=== PATIENT | male | born 1990 ===

== ENCOUNTER → 2020-01-02 | Outpatient (CLI) | payer BC | LOC: HYPER 08:34 | PROVIDERS: ATTEND Emergency Medicine | DX: T81.31XA Disruption of external operation (surgical) wound, not elsewhere classified, initial encounter (principal); L05.01 Pilonidal cyst with abscess; Y92.238 Other place in hospital as the place of occurrence of the external cause; Y83.8 Other surgical procedures as the cause of abnormal reaction of the patient, or of later complication, without mention of misadventure at the time of the procedure ==

== ENCOUNTER → 2020-01-10 | Outpatient (CLI) | payer BC | LOC: HYPER 09:57 | PROVIDERS: ATTEND Emergency Medicine | DX: T81.31XD Disruption of external operation (surgical) wound, not elsewhere classified, subsequent encounter (principal); L05.01 Pilonidal cyst with abscess; Y83.8 Other surgical procedures as the cause of abnormal reaction of the patient, or of later complication, without mention of misadventure at the time of the procedure ==

== ENCOUNTER → 2020-01-17 | Outpatient (CLI) | payer BC | LOC: HYPER 10:39 | PROVIDERS: ATTEND Emergency Medicine Emergency Medical Services | DX: T81.31XD Disruption of external operation (surgical) wound, not elsewhere classified, subsequent encounter (principal); L05.01 Pilonidal cyst with abscess; Y83.8 Other surgical procedures as the cause of abnormal reaction of the patient, or of later complication, without mention of misadventure at the time of the procedure ==

== ENCOUNTER → 2020-01-31 | Outpatient (CLI) | payer BC | LOC: HYPER 10:38 | PROVIDERS: ATTEND Emergency Medicine | DX: T81.31XD Disruption of external operation (surgical) wound, not elsewhere classified, subsequent encounter (principal); L05.01 Pilonidal cyst with abscess; Y83.8 Other surgical procedures as the cause of abnormal reaction of the patient, or of later complication, without mention of misadventure at the time of the procedure ==

== ENCOUNTER → 2020-02-14 | Outpatient (CLI) | payer BC | LOC: HYPER 09:52 | PROVIDERS: ATTEND Emergency Medicine | DX: T81.31XD Disruption of external operation (surgical) wound, not elsewhere classified, subsequent encounter (principal); L05.01 Pilonidal cyst with abscess; K08.409 Partial loss of teeth, unspecified cause, unspecified class; Y83.8 Other surgical procedures as the cause of abnormal reaction of the patient, or of later complication, without mention of misadventure at the time of the procedure ==

== ENCOUNTER → 2020-02-28 | Outpatient (CLI) | payer BC | LOC: HYPER 10:14 | PROVIDERS: ATTEND Emergency Medicine | DX: T81.31XD Disruption of external operation (surgical) wound, not elsewhere classified, subsequent encounter (principal); L05.01 Pilonidal cyst with abscess; Y83.8 Other surgical procedures as the cause of abnormal reaction of the patient, or of later complication, without mention of misadventure at the time of the procedure ==

== ENCOUNTER → 2020-03-13 | Outpatient (CLI) | payer BC | LOC: HYPER 09:42 | PROVIDERS: ATTEND Emergency Medicine | DX: T81.31XD Disruption of external operation (surgical) wound, not elsewhere classified, subsequent encounter (principal); L05.01 Pilonidal cyst with abscess; Y83.8 Other surgical procedures as the cause of abnormal reaction of the patient, or of later complication, without mention of misadventure at the time of the procedure ==